=== PATIENT | female | born 2000 | race Caucasian/White ===

== ENCOUNTER → 2024-06-02 12:37 | Outpatient (CLI) | payer OTHER, SELFPAY ==
--- NOTE | 2024-06-02 12:40 | DI.CT.S_ITS ---
PROCEDURE: CT FACIAL BONES WO CON INDICATIONS: epistaxis TECHNIQUE: Noncontrast 2.5 mm thick axial images acquired from the mandible through the frontal sinuses, with coronal and sagittal reformatting. For radiation dose reduction, the following was used: automated exposure control, adjustment of mA and/or kV according to patient size. COMPARISON: None. FINDINGS: Image quality: Excellent. Bones and teeth: Orbital montague are intact. Sinus montague show no fracture or deformity. Nasal bones and septum are intact. Visualized portions of the mandible demonstrate no fractures or subluxation. Zygomatic arches are intact. Pterygoid plates are intact. Visualized portions of the skull base and auditory canals are intact. Sinuses: Small right maxillary sinus mucosal cyst. Paranasal sinuses are otherwise aerated, without fluid levels, mucosal thickening, or mucoceles. Mastoid air cells are aerated. Soft tissues: No edema, masses, or fluid collections. No enlarged lymph nodes. No soft tissue lacerations or debris. Vascular: Visualized vascular structures appear normal in the absence of contrast. Bony vascular foramina and canals are intact. IMPRESSION: No cause for patient's symptoms is identified. No acute facial fractures. Dictated by: Remy Coon M.D. on 06/02/2024 at 15:52 Approved by: Remy Coon M.D. on 06/02/2024 at 15:54
== END ==
PROVIDERS: Family Provider Internal Medicine
DX: J34.1 Cyst and mucocele of nose and nasal sinus (principal); R04.0 Epistaxis
CPT/HCPCS: 70486

== ENCOUNTER 2024-09-22 21:22 | Emergency (ER) | payer OTHER, SELFPAY ==
[2024-09-22 21:26] VITALS: BP 142/79; PULSE 84; RESP 17; TEMP 36.6; O2SAT 100; BMI 28.0
[2024-09-22 22:07] LABS: Strep Grp A by PCR Rapid Negative (Negative)
--- NOTE | 2024-09-23 01:22 | PC.NURSE ---
Pt refused Covid/Flu/RSV swab stating I have nose issues.
[2024-09-23 01:46] VITALS: BP 134/91; PULSE 77; RESP 16; O2SAT 95
--- NOTE | 2024-09-23 02:01 | ED.GENADULT ---
HPI - General Adult General Chief complaint: Upper Respiratory Symptoms Stated complaint: SOB today getting worse now, nausea,fever Time Seen by Provider: 09/23/24 00:20 Source: patient Mode of arrival: Ambulatory History of Present Illness HPI narrative: 24-year-old female complains of 3 days duration cough, with laryngitis, increasing left ear pain without drainage. Sore throat symptoms as well. Has nasal passage problems, does not want to have swabbing for COVID/flu testing. Not currently on any antibiotics. None recently taken. Related Data Previous Rx's ?Medication ?Instructions ?Recorded amoxicillin 875 mg tablet 875 mg PO BID dental infection 10 09/23/24 days #20 tabs Allergies Allergy/AdvReac Type Severity Reaction Status Date / Time No Known Drug Allergies Allergy Verified 09/22/24 21:38 Exam Narrative Exam Narrative: GENERAL: Well-developed patient, in mild distress. HEAD: Atraumatic. Normocephalic. EYES: Pupils equal round and reactive. Extraocular motions intact. No scleral icterus. No injection or drainage. ENT: Laryngitis on phonation noted. Left TM with dullness in opaque white color, loss of landmarks. EACs normal. Right TM with clear fluid behind, but landmarks intact. Nose without bleeding, purulent drainage. Throat without erythema, tonsillar hypertrophy or exudate. Airway patent. NECK: Trachea midline. Non tender. CARDIOVASCULAR: Regular rate and rhythm without murmurs, gallops, or rubs. RESPIRATORY: Clear to auscultation. Breath sounds equal bilaterally. No wheezes, rales, or rhonchi. GASTROINTESTINAL: Abdomen soft, non-tender, nondistended. EXTREMITIES: No edema or joint tenderness. BACK: Nontender without deformity or crepitance. No flank tenderness. NEURO: AOx3. Motor functions grossly nonfocal SKIN: No rash or erythema of visible areas Initial Vital Signs Initial Vital Signs: Vital Signs Temperature 97.9 F 09/22/24 21:26 Pulse Rate 84 09/22/24 21:26 Respiratory Rate 17 09/22/24 21:26 Blood Pressure 142/79 H 09/22/24 21:26 Pulse Oximetry 100 09/22/24 21:26 Oxygen Delivery Method Room Air 09/22/24 21:26 Course Orders Ordered: ED Orders 09/22/24 21:37 Strep Grp A by PCR Rapid Stat Throat Culture Stat Discontinued Medications Albuterol (Albuterol 2.5 Mg/3 Ml Neb (Adult)) 2.5 mg INH NOW ONE Stop: 09/23/24 02:01 Last Admin: 09/23/24 02:09 Dose: Not Given Documented By: BRISA Albuterol (Albuterol Hfa Prepack) 1 box MISC DIRECTED ONE Stop: 09/23/24 02:07 Last Admin: 09/23/24 02:15 Dose: 1 box Documented By: BRISA Amoxicillin (Amoxicillin 250 Mg Capsule) 1,000 mg PO NOW ONE Stop: 09/23/24 02:07 Last Admin: 09/23/24 02:15 Dose: 1,000 mg Documented By: BRISA Ibuprofen (Ibuprofen 400 Mg Tablet) 400 mg PO NOW ONE Stop: 09/23/24 02:07 Last Admin: 09/23/24 02:15 Dose: 400 mg Documented By: BRISA Vital Signs Vital signs: Vital Signs - 8 hr 09/22/24 21:26 09/23/24 01:46 09/23/24 01:46 Temperature 97.9 F Pulse Rate 84 77 Respiratory Rate 17 16 Blood Pressure 142/79 H 134/91 H Pulse Oximetry 100 95 Oxygen Delivery Method Room Air Room Air Medical Decision Making Lab Data Labs: Lab Results 09/22/24 Range/Units 21:37 Group A Strep (PCR) Negative (Negative) MDM Narrative Medical decision making narrative: 24-year-old female with laryngitis, sore throat and cough last 3 days, increasing left ear pain. Left acute suppurative otitis media on examination. No recent antibiotics. NKDA. Declines COVID/fluids swab due to nasal passage problems. Rapid strep screen done from triage negative. Oral amoxicillin dose dispensed, prescription sent to her pharmacy for further treatment. Oral ibuprofen dose given. Regarding her shortness of breath, moving air well, lungs clear, no retractions, normal oxygenation on room air, trial of dispensed albuterol inhaler with spacer, 2 puffs 4 times a day for this week and then as needed. Follow up with PCP if not improving in the next couple of days. Discharged home. Discharge Plan Departure Patient Disposition: Home Clinical Impression: Upper respiratory infection, Laryngitis, Left acute otitis media Activity Restrictions/Additional Instructions: Recent cough with pharyngitis sore throat. Strep screen from triage was negative. Likely viral illness upper respiratory infection. Declined COVID/flu swab testing due to nasal passage problems. On examination has dullness and loss of landmarks on left eardrum examination, middle ear infection suspected clinically. Trial of amoxicillin antibiotic, 1st dose given, prescription sent to your pharmacy for further dose. Take Tylenol and or Motrin as needed for pain control. Regarding your shortness of breath, you had no obvious wheeze or crackles, seemed to speak speaking in full sentences. Trial of inhaler with use of spacer, 2 puffs 4 times daily for this next week and then as needed. Consider recheck of your examination and symptoms in 2 days if not improving, with your regular healthcare provider. Return to this/nearest emergency department for any change worsening symptoms or any concerns prior. Prescriptions: New amoxicillin 875 mg tablet 875 mg PO BID 10 Days Qty: 20 0RF Referrals: Daphney Boston MD [Primary Care Provider, Medical] Stand Alone Forms: Patient Portal/API, Work Release Note
[2024-09-23] MEDS: IBUPROFEN 400 MG TABLET PO (02:15)
[2024-09-23] MEDS: ALBUTEROL HFA PREPACK 1 BOX MISC (02:15)
[2024-09-23] MEDS: AMOXICILLIN 250 MG CAPSULE 1000 MG PO (02:15)
== END 2024-09-23 02:28 | disposition home or self-care (01) ==
PROVIDERS: Emergency Provider Emergency Medicine; Family Provider Internal Medicine
DX: J06.9 Acute upper respiratory infection, unspecified (principal); J04.0 Acute laryngitis; H66.92 Otitis media, unspecified, left ear
CPT/HCPCS: 87070; 87651; 99283